=== PATIENT | female | born 1975 | race Two or more races ===

== ENCOUNTER 2022-09-22 08:28 | Outpatient (CLI) | payer OTHER | END 2022-09-22 23:59 | disposition home or self-care (01) | LOC: LAB 08:28 | PROVIDERS: ATTEND Specialist | DX: Z01.812 Encounter for preprocedural laboratory examination (principal); Z20.822 Contact with and (suspected) exposure to COVID-19 | CPT/HCPCS: U0003; C9803 ==

== ENCOUNTER 2022-09-29 05:06 | Day surgery (SDC) | payer OTHER ==
[2022-09-29] MEDS ORDERED: BUPIVACAINE 0.25% 75 MG/30 ML VIAL ONE (06:24)
[2022-09-29] MEDS ORDERED: HYDROCODONE/APAP 5/325MG TABLET PO PRN ×2 (09:00)
[2022-09-29 09:26] VITALS: BP 106/68
--- NOTE | 2022-09-29 10:00 | NUR ---
TALENT ACQUISITION SOURCER NOTES PATIENT S/P RIGHT CARPAL TUNNEL RELEASE BY DR CONNER AND WITH ORDER OF NORCO 1-2 TAB PRN FOR PAIN Q6 H ORDERED , FOLLOW WITH MD AFTER 10 DAYS , RESUME ACTIVITIES WHEN STABLE , AND TO D/C HOME ONCE CLEARED , ALL DISCHARGE PAPERS WHERE PREPARED AND INSTRUCTIONS PROVIDED AND UNDERSTOOD , ALL BELONGINGS WAS BROUGHT BY PATIENT AND FORM WAS SIGNED , C/O OF PAIN ON THE RIGHT ARM 02/24 AND NORCO WAS GIVEN AND WITH HELP , PATIENT WITH NO SOB OR DISTRESS NOTED , CAME TO PROVIDE TRANSPORTATION AND PATIENT LEFT IN A STABLE CONDITION . ALL NEEDS WERE ATTENDED
== END 2022-09-29 18:00 | disposition home or self-care (01) ==
LOC: DS 05:06 → MED 05:07 → UNDOADMIN 05:07 → UNDODISIN 09:45 → DS 18:00
PROVIDERS: ATTEND Specialist
DX: G56.01 Carpal tunnel syndrome, right upper limb (principal); Z20.822 Contact with and (suspected) exposure to COVID-19; D64.9 Anemia, unspecified; Z98.890 Other specified postprocedural states; Z79.899 Other long term (current) drug therapy
CPT/HCPCS: 64721; 84703; 87081; J0690; J1100; J2704; J3490 ×2; J1885; J2405; J7030; A6402; G0378